=== PATIENT | female | born 1975 | race Caucasian/White ===

== ENCOUNTER 2016-07-14 06:56 | Emergency (ER) | payer MEDICAID ==
--- NOTE | 2016-07-14 08:17 | ED Physician Chart ---
Chief Complaint/HPI - Patient Information Date Seen:: 07/14/16 Time Seen:: 07:15 Chief Complaint:: vomiting History of Present Illness:: location: general quality: vomiting severity: mild duration: 5 hours context: pt reports eating some meat based chili yesterday for supper, began to feel sick afterward, at about 2 am began vomiting. has vomited approximately 5 times and also some loose stools x 3. no blood in vomitus or stool. pt still feels nauseated, says last vomitus still contained food products, thinks her stomach is not completely empty yet. some mild abdominal cramping, no pain complaint during physician exam, pt reports nausea during physician exam. no fever, no rash. mod factors: none assoc s/s: none hx from pt. Allergies:: Allergies Allergy/AdvReac Type Severity Reaction Status Date / Time No Known Allergies Allergy Verified 07/14/16 07:02 Vitals:: Vital Signs - 8 hr 07/14/16 07:00 Temp 98.9 F HR 89 RR 20 BP 136/84 O2 Sat % 98 Historian:: Patient Review:: Nurse's Note Reviewed Review of Systems - Review of Systems General/Constitutional: No fever, No chills, No weight loss, No weakness, No diaphoresis, No edema, No loss of appetite Skin: No skin lesions, No rash, No bruising Head: No headache, No light-headedness Eyes: No loss of vision, No pain, No diplopia ENT: No earache, No nasal drainage, No sore throat, No tinnitus Neck: No neck pain, No swelling, No thyromegaly, No stiffness, No mass noted Cardio Vascular: No chest pain, No palpitations, No PND, No orthopnea, No edema Pulmonary: No SOB, No cough, No sputum, No wheezing GI: Nausea, Vomiting, Diarrhea, No melena, No hematochezia, No constipation, No hematemesis G/U: No dysuria, No frequency, No hematuria Material Damage Adjuster: No vaginal discharge, No abnormal vaginal bleed Musculoskeletal: No bone or joint pain, No back pain, No muscle pain Endocrine: No polyuria, No polydipsia Psychiatric: No prior psych history, No depression, No anxiety, No suicidal ideation Hematopoietic: No bruising, No lymphadenopathy Allergic/Immuno: No urticaria, No angioedema Neurological: No syncope, No focal symptoms, No weakness, No paresthesia, No headache, No seizure, No dizziness, No confusion, No vertigo Other: pt with history of substance abuse Past Medical History - Past Medical History Past Medical History: No significant medical hx Family History: None Social History: Smoker Surgical History: None Psychiatricy History: None Medication: None Family Medical History - Family Member Mother History Unknown: Yes Ethnicity: Non- Physical Exam - Physical Examination General/Constitutional: Awake, Well-developed, well-nourished, Alert, No distress, GCS 15, Non-toxic appearing, Ambulatory Head: Atraumatic Eyes: Lids, conjuctiva normal, PERRL, EOMI Skin: Nl inspection, No rash, No skin lesions, No ecchymosis, Well hydrated, No lymphadenopathy ENMT: External ears, nose nl, Nasal exam nl, Lips, teeth, gums nl Neck: Nontender, Full ROM w/o pain, No JVD, No nuchal rigidity, No bruit, No mass, No stridor Respiratory: Nl effort/Exclusion, Clear to Auscultation, No Wheeze/Rhonchi/Rales Cardio Vascular: RRR, No murmur, gallop, rubs, NL S1 S2 GI: No tenderness/rebounding/guarding, No organomegaly, No hernia, Normal BS's, Nondistended, No mass/bruits, No McBurney tenderness : No CVA tenderness Extremities: No tenderness or effusion, Full ROM, normal strength in all extremities, No edema, Normal digits & nails Neuro/Psych: Alert/oriented, DTR's symmetric, Normal sensory exam, Normal motor strength, Judgement/insight normal, Mood normal, Normal gait, No focal deficits Misc: normal gait, Normal back, No paraspinal tenderness Assessment - Assessment General Assessment: food poisoning, pt stable while in ER. ED Septic Shock - . Is Septic Shock (SBP<90, OR Lactate>4 mmol\L) present?: No - <6hrs of presentation: Vital Signs: Vital Signs - 8 hr 07/14/16 07:00 Temp 98.9 F HR 89 RR 20 BP 136/84 O2 Sat % 98 Reassessment (Disposition) - Reassessment Reassessment:: pt in stable condition during ER stay. Reassessment Condition:: Unchanged - Diagnosis Diagnosis:: Food Poisoning, Gastroenteritis - Aftercare/Follow up Instructions Notes:: follow up with primary care tomorrow for recheck - Patient Disposition Discharge/Transfer:: Home Condition at Disposition:: Stable
== END 2016-07-14 09:12 | disposition home or self-care (01) ==
LOC: ER 06:56
DX: T62.91XA Toxic effect of unspecified noxious substance eaten as food, accidental (unintentional), initial encounter (principal); K52.1 Toxic gastroenteritis and colitis; F17.200 Nicotine dependence, unspecified, uncomplicated; Y92.89 Other specified places as the place of occurrence of the external cause
CPT/HCPCS: Z7502